=== PATIENT | male | born 1960 | race Caucasian/White ===

== ENCOUNTER 2023-04-16 07:45 | Day surgery (SDC) | payer OTHER ==
[2023-04-16 08:13] LABS: Absolute Lymphocytes (CBC) 2.2 K/uL (0.7-4.9); Hematocrit 49.3 % (39.6-49.0); Lymphocytes % 27.4 % (15.3-44.8); MCV 101.1 fL (80-100); Platelets 226 thou/uL (152-406); RBC Red Blood Cell Count 4.88 M/uL (4.33-5.43)
[2023-04-16 08:26] LABS: Potassium 3.9 mEq/L (3.5-5.1)
[2023-04-16] MEDS ORDERED: Ringers Lactate 1,000 ML IV ONE (08:27)
--- NOTE | 2023-04-16 09:04 | RAD REPORT ---
EXAM DESCRIPTION: RAD - Chest Pa And Lat (2 Views) - 04/16/2023 8:57 am CLINICAL HISTORY: PREPROCEDURE SCREENING, hypertension COMPARISON: CHEST SINGLE VIEW dated 11/21/2007 FINDINGS: Lines: None. Lungs: No evidence of edema or pneumonia. Pleural: No significant pleural effusions or pneumothorax. Cardiac: The heart size is within normal limits. Mediastinum: Within normal limits. Bones: No acute fractures. Other: None IMPRESSION: No acute cardiopulmonary disease.
[2023-04-16] MEDS ORDERED: ONDANSETRON 4 MG/2 ML VIAL ONE (09:15)
[2023-04-16] MEDS ORDERED: MIDAZOLAM HCL 2 MG/2 ML INJ ONE (09:15)
[2023-04-16] MEDS ORDERED: FENTANYL CITR 100 MCG/2 ML ONE (09:15)
[2023-04-16] MEDS ORDERED: propofoL 200 MG/20 ML VIAL IV ONE (09:15)
[2023-04-16] MEDS ORDERED: LIDOCAINE 2% MPF 5 ML VIAL ONE (09:15)
[2023-04-16] MEDS ORDERED: dexAMETHasone 10 MG/ML VIAL ONE (09:15)
[2023-04-16] MEDS ORDERED: KETOROLAC 30 MG/ML INJ ONE (09:15)
[2023-04-16] MEDS: CEFOXITIN SODIUM 1 GM/VIAL ONE ×2 (09:38→10:00)
[2023-04-16] MEDS: BUPIVACAINE 0.5% PF 10 ML VIAL ONE ×2 (09:40→10:13)
[2023-04-16] MEDS ORDERED: HYDROCODONE/APAP 7.5/325 MG TAB PO PRN (10:51)
--- NOTE | 2023-04-16 10:55 | P.OP ---
Date of Service: 04/16/23 Preop diagnosis: Thrombosed hemorrhoid Postop diagnosis: Same Procedure performed: Examiner anesthesia, rigid proctoscopy and hemorrhoidectomy left lateral Surgeon: Herson Canela MD Bank Analyst: None Estimated blood loss: Minimal Specimen: Thrombosed hemorrhoid on the left lateral side Findings: As above Anesthesia: General Complications: None Drains: None Fluids and blood products: Nonapplicable Disposition: Recovery room Operative note: Patient brought to the OR and placed in the supine position. General anesthesia begun. Patient placed in the lithotomy position. Patient prepped and draped in the usual sterile fashion. Exam under anesthesia and rigid proctoscopy revealed a left lateral thrombosed internal hemorrhoid. Marcaine 0.5% infiltrated locally. Then harmonic scalpel used to excise the thrombosed hemorrhoid. Bleeding controlled cautery. Then the anal plug consisting of Gelfoam Surgicel and Vaseline gauze placed in the anal canal. Sterile dressing applied. Patient awakened and taken to recovery room in good general condition. CC: Dr. Thompson's office
[2023-04-16] MEDS ORDERED: HYDROCODONE/APAP 7.5/325 MG TAB ONE (11:42)
[2023-04-16 12:41] VITALS: BP 154/91; TEMP 97.7; O2SAT 100
--- NOTE | 2023-04-17 18:07 | EKG ---
Test Date: 2023-04-16 Test Time: 08:16:58 Bike Designer: EDGAR MEASUREMENT RESULTS: Intervals: Rate: 74 NM: 142 QRSD: 84 QT: 364 QTc: 404 [place]: P: 75 NM: 142 QRS: -26 T: 66 INTERPRETIVE STATEMENTS: Normal sinus rhythm Normal ECG Compared to ECG 11/22/2007 07:54:03 No significant changes Electronically Signed On 04-17-23 18:04:00 CDT by Amador Kaiser
== END 2023-04-16 12:00 | disposition home or self-care (01) ==
LOC: OR 07:45
PROVIDERS: ATTEND Surgery
PROC: 06BY4ZC Excision of Hemorrhoidal Plexus, Percutaneous Endoscopic Approach (ICD-10-PCS; 2023-04-16)
PROC: 0DJD8ZZ Inspection of Lower Intestinal Tract, Via Natural or Artificial Opening Endoscopic (ICD-10-PCS; principal; 2023-04-16 10:00)
DX: K64.5 Perianal venous thrombosis (principal); I10 Essential (primary) hypertension; F17.210 Nicotine dependence, cigarettes, uncomplicated
CPT/HCPCS: 36415; 71046; 80048; 85025; 88304; 93005; J0694; J1100; J2001; J2250; J2405; J2704; J3010; J7120